=== PATIENT | female | born 1995 | race Caucasian/White ===

== ENCOUNTER 2019-06-02 02:19 | Inpatient (IN) | payer OTHER ==
[~2019-06-02] VITALS: Ht 160 cm; Wt 64.9 kg
[~2019-06-02 02:19] MED LIST: ACET500C5 PO
[2019-06-02 02:37] VITALS: BP 143/97; PULSE 62; RESP 18
[2019-06-02] MEDS ORDERED: PREN-19 PO (02:41)
[2019-06-02] MEDS ORDERED: FOLI0.4T2 PO (02:41)
[2019-06-02] MEDS ORDERED: FERR134T PO (02:41)
[2019-06-02] MEDS ORDERED: CHOL400T10 PO (02:41)
[2019-06-02] MEDS ORDERED: LACTATED RINGER'S 1,000 ML IV PRN (05:58)
[2019-06-02] MEDS ORDERED: OXYTOCIN 30 UNITS/LR 500 ML IV SCH ×4 (06:00→22:51)
[2019-06-02] MEDS ORDERED: OXYTOCIN 30 UNITS/LR 500 ML IV PRN ×3 (06:00→23:30)
[2019-06-02] MEDS ORDERED: BUTORPHANOL 2 MG INJ IV PRN ×2 (06:00)
[2019-06-02] MEDS ORDERED: CARBOPROST 250 MCG INJ IM PRN ×3 (06:00→23:30)
[2019-06-02] MEDS ORDERED: MISOPROSTOL 200 MCG TAB PR PRN ×3 (06:00→23:30)
[2019-06-02] MEDS ORDERED: MINERAL OIL LIGHT 10 ML VIAL TOP ONE (06:00)
[2019-06-02] MEDS ORDERED: METHYLERGONOVINE 0.2 MG INJ IM PRN ×3 (06:00→23:30)
[2019-06-02] MEDS ORDERED: LIDOCAINE 1% (MPF) 30 ML INJ INJ PRN (06:00)
[2019-06-02] MEDS ORDERED: AMPICILLIN 2 GM/NS (PMX) 100 ML IV ONE (06:00)
[2019-06-02] MEDS ORDERED: IBUPROFEN 600 MG TAB PO PRN (06:00)
--- NOTE | 2019-06-02 06:27 | TRIAGE ---
OB Triage Datetime Report Generated by CPN: 06/02/2019 06:27 Datetime: 06/02/2019 06:07 Comments: pt off monitor to be transferred to [facility] to be admitted to Labor and Delivery. Datetime: 06/02/2019 05:55 Stage of : OB Triage Datetime: 06/02/2019 05:48 Stage of : OB Triage Labor Evaluation Monitor Mode: External Quality: Moderate Pattern: Normal: <= 5 Contractions in 10 Minutes Resting Tone Ravena: Relaxed Heart Rate FHR Baseline Rate: 130 Monitor Mode: External US FHR Baseline Changes: No Baseline Change Variability: Moderate 6-25 bpm Accelerations: 15X15 Decelerations: None Category: Category I Vaginal Exam Dilatation (cms): 3.5 Effacement (%): 90 Station: -1 Exam By: Norm Vargas Membrane Status: Intact Amniotic Fluid Amount: None Vaginal Bleeding: Normal Show Cervix, Consistency: Soft Cervix, Position: Midposition Presentation 'A': Cephalic Datetime: 06/02/2019 03:00 Stage of : OB Triage Datetime: 06/02/2019 02:57 Stage of : OB Triage Labor Evaluation Monitor Mode: External Quality: Mild Pattern: Normal: <= 5 Contractions in 10 Minutes Resting Tone Ravena: Relaxed Heart Rate FHR Baseline Rate: 120 Monitor Mode: External US FHR Baseline Changes: No Baseline Change Variability: Moderate 6-25 bpm Accelerations: 10X10 Decelerations: None Category: Category I Vaginal Exam Dilatation (cms): 3.0 Effacement (%): 80 Station: -2 Exam By: E Sam Membrane Status: Intact Amniotic Fluid Amount: None Amniotic Fluid Odor: None Vaginal Bleeding: None Cervix, Consistency: Soft Cervix, Position: Midposition Presentation 'A': Cephalic Datetime: 06/02/2019 02:33 Stage of : OB Triage Maternal Assessment Level of Consciousness: Keenly Alert, Responsive DTR's/Clonus: DTRs 2+; No Clonus Headache: Denies Blurred Vision: No Respiratory Effort: Unlabored Nausea/Vomiting: Denies RUQ Epigastric Pain: Denies Facial Edema: None Labor Evaluation Monitor Mode: External Resting Tone Ravena: Relaxed Monitor Mode: External US Comments: FHR 125 Pain Assessment Pain Scale: 9 Pain Presence: Intermittent Pain Type: Contraction Pain Location: Abdomen; Back Datetime: 06/02/2019 02:30 Arrived By: Wheelchair Arrived From: Home Chief Complaint: c/o ucs Movement: Present Contractions: Regular Time Contractions Began: 06/01/2019 17:00 Contractions: q10-20 Rupture of Membranes: Denies Vaginal Bleeding: None Vaginal Discharge: Denies Recent Sexual Intercouse: Denies Abdominal Trauma: Not Applicable Patient Complaints: Cramping; Back Pain Time Provider Notified: 06/02/2019 03:00 Provider Notified: Dr Grimm Initial Plan: JORGE,KENDRA,PIIsidra [facility]
[2019-06-02] MEDS: LACTATED RINGER'S 1,000 ML IV SCH ×3 (07:47→19:03)
[2019-06-02] MEDS ORDERED: AMPICILLIN 1 GM/NS (PMX) 50 ML IV SCH (10:00)
--- NOTE | 2019-06-02 16:11 | PREAC ---
Date/Time of Note Date/Time of Note DATE: 06/02/19 TIME: 16:10 Anesthesia Eval and Record Evaluation Time Pre-Procedure Interview DATE: 06/02/19 TIME: 16:10 Age 23 Sex female NPO: 8 hrs Preoperative diagnosis IUP, Planned procedure labor epidural Past Medical History Past Medical History: Includes : : (2), Para: (0), Gestational age: (38.2) Surgery & Anesthesia Issues No known issue Meds Anticoagulation: No Beta Clement within 24 hr: No Reason Beta Clement not given: Pt. not on B-Clement Reported Medications Cholecalciferol* (Vitamin D*) 400 Unit Tablet, 400 UNIT PO DAILY, TAB 06/02/19 Folic Acid* (Folic Acid*) 0.4 Mg Tablet, 0.4 MG PO DAILY, TAB 06/02/19 Vit #76/Iron,Carb/FA (Prenatabs Rx Tablet) 1 Each Tablet, 1 EACH PO DAILY, TAB 06/02/19 Ferrous Sulfate (Iron) 134 Mg Tablet, 134 MG PO DAILY, TAB 06/02/19 Discontinued Scripts Acetaminophen* (Tylophen*) 500 Mg Capsule, 1 CAP PO Q6H PRN for PAIN AND OR ELEVATED TEMP, #20 CAP Prov:JOS RODRIGUEZ PA-C 01/29/16 Current Medications Lactated Ringer's 1,000 ml @ 125 mls/hr Q8H IV Last administered on 06/02/19at 13:50; Admin Dose 125 MLS/HR; Start 06/02/19 at 05:58 Butorphanol Tartrate (Stadol) 1 mg Q2H PRN IV .PAIN SCALE 1-5; Start 06/02/19 at 06:00 Butorphanol Tartrate (Stadol) 2 mg Q2H PRN IV .PAIN SCALE 6-10; Start 06/02/19 at 06:00 Lidocaine (Xylocaine 1% (Mpf)) 30 ml ONCE PRN INJ .EPISIOTOMY; Start 06/02/19 at 06:00 Oxytocin/Lactated Ringer's 500 ml @ 500 mls/hr ONCE POST IV ; Start 06/02/19 at 06:00 Oxytocin/Lactated Ringer's 500 ml @ 125 mls/hr POST IV ; Start 06/02/19 at 06:00 Ibuprofen (Motrin) 600 mg ONCE PRN PO .PAIN 1-5; Start 06/02/19 at 06:00 Lactated Ringer's 1,000 ml @ 2,000 mls/hr Q30M PRN IV .ANESTHESIA; Start 06/02/19 at 05:58 Oxytocin/Lactated Ringer's 500 ml @ 0 mls/hr ONCE PRN IV .VAGINAL BLEEDING; Start 06/02/19 at 06:00 Methylergonovine Maleate (Methergine) 0.2 mg ONCE PRN IM .VAGINAL BLEEDING; Start 06/02/19 at 06:00 Carboprost Tromethamine (Hemabate) 250 mcg ONCE PRN IM .VAGINAL BLEEDING; Start 06/02/19 at 06:00 Misoprostol (Cytotec) 1,000 mcg ONCE PRN MA .VAGINAL BLEEDING; Start 06/02/19 at 06:00 Oxytocin/Lactated Ringer's 500 ml @ 0 mls/hr FOR AUGMENTATION IV Last administered on 06/02/19at 08:22; Admin Dose 1 MLS/HR; Start 06/02/19 at 06:00 Meds reviewed: Yes Allergies Coded Allergies: No Known Allergy (Unverified , 06/02/19) Allergies Reviewed: Yes Labs/Studies Labs Reviewed: Reviewed by anesthesiologist Result Diagram: 06/02/19 0715 06/02/19 0425 Laboratory Tests 06/02/19 04:25 06/02/19 07:15 Blood Bank Test 06/02/19 08:08 Antibody Screen NEGATIVE Blood Type O POSITIVE Rh Immune Globulin Candidate NO test: N/A Pre-procedure Exam Last vitals Vital Signs Date Temp Pulse Resp B/P (MAP) Pulse Ox O2 O2 Flow FiO2 Time Delivery Rate 06/02/19 98.4 62 18 143/97 Room Air 02:37 (112) Airway: Adequate mouth opening, Adequate thyromental dist Mallampati: Mallampati II Teeth: Normal Lung: Normal Heart: Normal ASA Physical Status ASA physical status: 2 Emergency: None Planned Anesthetic Neuraxial: Epidural Planned Pain Management Epidural Pre-operative Attestations Prior to commencing anesthesia and surgery, the patient was re-evaluated, there was verification of: *The patient's identity *The results of appropriate recent lab work and preoperative vital signs *The above evaluation not changing prior to induction *Anesthetic plan, risk benefits, alternative and complications discussed with patient/family; questions answered; patient/family understands, accepts and wishes to proceed. ARLEY VICK MD Jun 02, 2019 16:11
[2019-06-02] MEDS ORDERED: FENTAnyl 50 MCG/ML VIAL IV PRN ×3 (16:30)
[2019-06-02] MEDS ORDERED: ONDANSETRON 4 MG INJ IV PRN ×2 (16:30)
[2019-06-02] MEDS ORDERED: KETOROLAC 30 MG INJ IV PRN (16:30)
[2019-06-02] MEDS ORDERED: NALOXONE (0.4 MG/ML) INJ IV PRN (16:30)
[2019-06-02] MEDS ORDERED: FENTAnyl 2MCG/ML-ROPIV 0.2% 100 ML BAG EPI SCH (16:30)
[2019-06-02] MEDS ORDERED: HYDROmorphONE 1 MG/5 ML IV SYRINGE IV PRN ×3 (16:30)
[2019-06-02] MEDS ORDERED: PROCHLORPERAZINE 10 MG INJ IV PRN (16:30)
[2019-06-02] MEDS ORDERED: MEPERIDINE 25 MG INJ IV PRN (16:30)
[2019-06-02] MEDS ORDERED: DIPHENHYDRAMINE 50 MG INJ IV PRN ×2 (16:30)
--- NOTE | 2019-06-02 17:36 | PAC ---
Date/Time of Note Date/Time of Note DATE: 06/02/19 TIME: 17:35 Post-Anesthesia Notes Post-Anesthesia Note Last documented vital signs Vital Signs Date Temp Pulse Resp B/P (MAP) Pulse Ox O2 O2 Flow FiO2 Time Delivery Rate 06/02/19 98.4 62 18 143/97 Room Air 02:37 (112) Activity: WNL Respiratory function: WNL Cardiovascular function: WNL Mental status: Baseline Pain reasonably controlled: Yes Hydration appropriate: Yes Nausea/Vomiting absent: Yes Comments BP: 138/82 HR: 78 RR: 15 T: 98.4 SaO2: 100% ARLEY VICK MD Jun 02, 2019 17:36
[2019-06-02] MEDS ORDERED: ACETAMINOPHEN 325 MG TAB PO PRN (22:30)
[2019-06-02] MEDS ORDERED: MAGNESIUM SULFATE 4 GM/100 ML 100 ML IVPB ONE (22:30)
[2019-06-02] MEDS ORDERED: MAGNESIUM SULFATE 20 GM/500 ML 500 ML IV SCH ×2 (22:30→23:46)
[2019-06-02] MEDS ORDERED: LACTATED RINGER'S 1,000 ML IV SCH (22:51)
[2019-06-02] MEDS ORDERED: HYDROCODONE/APAP (5/325) TAB PO PRN ×2 (23:00)
[2019-06-02] MEDS ORDERED: METHYLERGONOVINE 0.2 MG TAB PO PRN (23:00)
[2019-06-02] MEDS ORDERED: LANOLIN HPA 1 PKT TOP PRN (23:00)
[2019-06-02] MEDS ORDERED: NA PHOSPHATE/BIPHOS 133 ML ENEMA PR PRN (23:00)
[2019-06-02] MEDS: CEFAZOLIN 2 GM/50 ML (PMX) 50 ML IVPB SCH (23:00)
[2019-06-02] MEDS ORDERED: CEFAZOLIN 2 GM/50 ML (PMX) 50 ML IVPB SCH (23:30)
[2019-06-02] MEDS ORDERED: AL HYDROX/MG HYDROX/SIMETH 30 ML CUP PO ONE (23:30)
[2019-06-02] MEDS ORDERED: METOCLOPRAMIDE 10 MG INJ IV ONE (23:30)
[2019-06-02] MEDS ORDERED: FAMOTIDINE 20 MG INJ IV ONE (23:30)
[2019-06-02] MEDS ORDERED: CITRIC ACID/NA CITRATE 30 ML CUP PO ONE (23:30)
[2019-06-03] VITALS (20 sets, daily range): BP systolic 110–183; BP diastolic 63–100; PULSE 52–75; RESP 17–18
[2019-06-03] MEDS ORDERED: morphine SULFATE/PF (10 MG/10 ML) INJ ONE
[2019-06-03] MEDS ORDERED: CA GLUCONATE (GM) 10% 10ML INJ IV PRN
--- NOTE | 2019-06-03 00:01 | SIPON ---
Date/Time of Note Date/Time of Note DATE: 06/02/19 TIME: 23:58 Operative Report Preoperative Diagnosis Term in labor No progress of labor -induced hypertension Severe headaches and epigastric pain Postoperative Diagnosis Same Baby girl 9 with asynclitic head Operation/Procedure Performed Primary low segment transverse section Surgeon see signature line showroom sales assistant Dr. Mullen Anesthesia: epidural Estimated blood loss: other Transfusion Required none Specimen Placenta Grafts/Implants none Complications none YVONNE SAUCEDO MD Jun 03, 2019 00:01
[2019-06-03] MEDS ORDERED: LIDOCAINE 1.5%/EPI MPF (SDV) 30 ML VIAL ONE (00:10)
[2019-06-03] MEDS ORDERED: NA BICARBONATE 8.4% 50 ML SYG ONE (00:10)
[2019-06-03] MEDS ORDERED: PROCHLORPERAZINE 10 MG INJ IV PRN (00:30)
[2019-06-03] MEDS ORDERED: HYDROmorphONE 1 MG/5 ML IV SYRINGE IV PRN ×3 (00:30)
[2019-06-03] MEDS ORDERED: KETOROLAC 30 MG INJ IV PRN ×2 (00:30→01:00)
[2019-06-03] MEDS ORDERED: MEPERIDINE 25 MG INJ IV PRN (00:30)
[2019-06-03] MEDS ORDERED: FENTAnyl 50 MCG/ML VIAL IV PRN ×3 (00:30)
[2019-06-03] MEDS ORDERED: ONDANSETRON 4 MG INJ IV PRN ×2 (00:30→01:00)
[2019-06-03] MEDS ORDERED: DIPHENHYDRAMINE 50 MG INJ IV PRN ×2 (00:30→01:00)
[2019-06-03] MEDS ORDERED: MIDAZOLAM 1 MG/ML 2 ML INJ ONE (00:42)
[2019-06-03] MEDS ORDERED: OXYTOCIN 30 UNITS/LR 500 ML IV ONE (00:47)
[2019-06-03] MEDS ORDERED: PHENYLephrine (100 MCG/ML) 10ML SYG ONE (00:52)
[2019-06-03] MEDS ORDERED: ZOLPIDEM 5 MG TAB PO PRN (01:00)
[2019-06-03] MEDS ORDERED: HYDROmorphONE 0.5 MG/0.5 ML SYG IV PRN ×2 (01:00)
[2019-06-03] MEDS ORDERED: NALBUPHINE HCL (10 MG/1 ML) INJ IV PRN (01:00)
[2019-06-03] MEDS ORDERED: NALOXONE (0.4 MG/ML) INJ IV PRN (01:00)
--- NOTE | 2019-06-03 01:19 | PAC ---
Date/Time of Note Date/Time of Note DATE: 06/03/19 TIME: 01:17 Post-Anesthesia Notes Post-Anesthesia Note Last documented vital signs Vital Signs Date Temp Pulse Resp B/P (MAP) Pulse Ox O2 O2 Flow FiO2 Time Delivery Rate 06/02/19 98.4 62 18 143/97 Room Air 02:37 (112) Activity: WNL Respiratory function: WNL Cardiovascular function: WNL Mental status: Baseline Pain reasonably controlled: Yes Hydration appropriate: Yes Nausea/Vomiting absent: Yes Comments BP: 118/70 HR: 89 RR: 15 T: 98 SaO2: 99% ARLEY VICK MD Jun 03, 2019 01:19
--- NOTE | 2019-06-03 01:35 | OPR ---
DATE OF OPERATION: PROCEDURE: Primary low segment transverse section. PREOPERATIVE DIAGNOSES: 1. Term . 2. No progress of labor. 3. Preeclampsia. 4. Severe headaches. 5. Epigastric pain. POSTOPERATIVE DIAGNOSES 1. Term . 2. No progress of labor. 3. Preeclampsia. 4. Severe headaches. 5. Epigastric pain. 6. Baby girl, 9 with asynclitic head. SURGEON: Yvonne Jones MD APIGEE DEVELOPER: Joseph Mullen MD ANESTHESIOLOGIST: ____ ANESTHESIA: Epidural. COMPLICATIONS: None. BLOOD LOSS: About 400 mL. PROCEDURE: The patient was given a booster of her epidural anesthesia, placed in the supine position . A Alamo catheter was placed in the bladder. The abdomen was prepped and draped. A transverse inc ision was made 2 cm up the pubic bone of about 10 cm in length. The abdomen was opened in layers wit hout difficulties. The abdominal cavity was reached. The lower uterine segment was identified and t he bladder flap was made. The uterus was opened in the midline with a scalpel and the incision was i ncreased laterally on either side for about 3 inches. The baby's head was visualized being asyncliti c and I placed the head on the flexed neck position, and I delivered the baby being a baby girl, Apga r 9. The cord was clamped and cut. The baby was handed over. The cord blood was obtained and the p lacenta was removed. The uterus was closed in 2 layers with #0 PDS looped suture, imbedding the firs t line of suture and hemostasis was good. The tubes and ovaries were inspected to be normal. The ut erus was contracted well. The peritoneum was closed with a 2-0 Vicryl suture. The fascia was closed with a 0 PDS looped suture, 2-0 Vicryl for the subcutaneous tissue, 3-0 Monocryl subcuticular to the skin. The patient tolerated the procedure well and left the OR awake and stable. Sponge counts and instrument counts were correct. Intravenous antibiotics were given for prophylaxis. BLOOD LOSS: About 600 mL and the urine was clear at the end of the procedure. Dictated By: YVONNE WALKER/RENETTA Conf#: [id number] DID#: [id number]
--- NOTE | 2019-06-03 01:39 | PREOPHP ---
DATE OF ADMISSION: 06/02/2019 HISTORY OF PRESENT ILLNESS: This is a 23-year-old female, 4, para 0, abortions 3 with a last period of 08/2018, and EDC of 06/14/2019. This patient came early this morning with contractions an d she was admitted for delivery at 38-1/2 weeks with mild preeclampsia with mild hypertensi on and with cervical dilatation of 1 cm, 80% effaced and adi every 5 minutes. The patient palafox d been augmented during the day and she received an epidural due to pain, and she has been with no pr ogress of labor for several hours and at this time, the patient is complaining of a continuous headac he that is in the forehead and in the top of the head, continuous headache that she rates at 9 when I spoke to her. The patient's [facility] labs were showing elevation of alkaline phosphatase, slightly low p latelets and normal uric acid and dipstick was negative for protein. The patient had normal reflexes at the admission time. At this time, she has been having high blood pressure with the highest to 16 0/85 and with excruciating epigastric pain that has been permanent. The patient attributes that to n ot eating enough food and she had tried popsicles that did not change the epigastric pain. There is no history of gastritis. The patient also started having some vaginal bleeding. She has been ruptur ed for unknown hours. Since admission she was not ruptured, but at this time at 10:00 p.m., the rajesh ent was reevaluated and found to be ruptured. The patient's reflexes were evaluated, but the epidura l was completely abolishing the reflexes. The upper arm reflexes were normal. The patient denies be ing dizzy or with blurry vision. The patient had a reevaluation of blood test that revealed that the platelets were 163, dropping from 180, that was before during the day. The headaches are still perm anently being rated as a 9 and with no progress of labor with some vaginal bleeding that has started since I checked her at 10:00 p.m. with a little bit of blood clots and with the development of pregna ncy-induced hypertension, no progress of labor, the patient is advised for a section. PAST MEDICAL HISTORY: She does not drink or smoke. ALLERGIES: SHE DOES NOT HAVE ALLERGIES. SOCIAL HISTORY: No history of drugs. FAMILY HISTORY: Diabetes and she had no surgical antecedents or medical antecedents. PHYSICAL EXAMINATION: VITAL SIGNS: The blood pressure right now is 130/80, pulse is 80, respirations 16. HEAD AND NECK: The head is normal with normal thyroid. CHEST: Clear. HEART: Normal sinus rhythm. LUNGS: Clear. BREASTS: Soft, nontender, no masses. ABDOMEN: Soft. Uterus at term with contractions every minute. heart tones were normal. PELVIC: She is 4 cm, 100% effaced, anterior cervix about 0 station and rupture of membranes with austen e vaginal bleeding. The genitalia otherwise with no contribution. EXTREMITIES: Normal with no edema and reflexes difficult to evaluate due to the epidural. DIAGNOSES: A 38 and 1/2 weeks , no progress of labor, preeclampsia and low platelets. PLAN: The patient is advised for a primary section. She has been advised of the possible r isks and possible complications of the procedure with her alternatives and options. Written informat ion was provided. She had no more questions and agreed to go ahead with the procedure with full unde rstanding and no more questions. Dictated By: YVONNE WALKER/RENETTA Conf#: [id number] DID#: [id number]
[2019-06-03] MEDS: MAGNESIUM SULFATE 20 GM/500 ML 500 ML IV SCH ×2 (02:20→21:57)
[2019-06-03] MEDS: OXYTOCIN 30 UNITS/LR 500 ML IV SCH ×2 (03:40→21:01)
[2019-06-03] MEDS ORDERED: IBUPROFEN 800 MG TAB PO SCH (06:00)
[2019-06-03] MEDS: CEFAZOLIN 2 GM/50 ML (PMX) 50 ML IVPB SCH ×2 (06:33→16:50)
[2019-06-03] MEDS: KETOROLAC 30 MG INJ IV SCH ×4 (09:52→20:33)
[2019-06-03] MEDS: LABETALOL 100 MG TAB PO PRN (12:05)
[2019-06-03] MEDS: SENNA/DOCUSATE NA (8.6MG/50MG) TAB PO SCH ×2 (20:31→21:03)
[2019-06-03] MEDS ORDERED: CEFAZOLIN 2 GM/50 ML (PMX) 50 ML IVPB SCH (23:30)
[2019-06-04] VITALS (8 sets, daily range): BP systolic 122–133; BP diastolic 61–84; PULSE 61–78; RESP 17–18
[2019-06-04] MEDS: KETOROLAC 30 MG INJ IV SCH ×2 (00:32→06:26)
[2019-06-04] MEDS: SENNA/DOCUSATE NA (8.6MG/50MG) TAB PO SCH ×2 (09:23→21:00)
--- NOTE | 2019-06-04 10:48 | PN ---
Date/Time of Note Date/Time of Note DATE: 06/04/19 TIME: 10:47 Assessment/Plan Lines/Catheters IV Catheter Type (from Nrs): Peripheral IV Subjective 24 Hr Interval Summary Day 2 post Afebrile. Feeling good Not passing gases yet Incision dry Lab work acceptable Encourage ambulation Constitutional: no complaints Feeding: baseline diet Detailed Summary Eyes: no complaints ENT: no complaints Respiratory: no complaints Cardiovascular: no complaints Gastrointestinal: no complaints Genitourinary: no complaints Musculoskeletal: no complaints Skin: no complaints Neurologic: no complaints Endocrine: no complaints Lymphatic: no complaints Psychological: no complaints, nl mood/affect Immunologic: no complaints Exam/Review of Systems Vital Signs Vitals Vital Signs Date Temp Pulse Resp B/P (MAP) Pulse Ox O2 O2 Flow FiO2 Time Delivery Rate 06/04/19 98.0 63 18 125/79 Room Air 04:51 (94) 06/03/19 95 21:00 Intake and Output 06/03/19 06/03/19 06/04/19 1515:00 23:00 07:00 IntakeIntake Total 2520 ml 1620 ml 275 ml OutputOutput Total 1150 ml 675 ml 2100 ml BalanceBalance 1370 ml 945 ml -1825 ml Exam Constitutional: alert, oriented, well developed Psych: no complaints, nl mood/affect Head: normocephalic, atraumatic Eyes: nl conjunctiva, EOMI, nl lids, nl sclera ENMT: nl external ears & nose, nl lips & teeth, nl nasal mucosa & septum, mucosa pink and moist Neck: supple, non-tender Respiratory: clear to auscultation, normal air movement Cardiovascular: regular rate and rhythm, nl pulses Gastrointestinal: soft, nl liver, spleen, non-tender Musculoskeletal: nl extremities to inspection, nl gait and stance Extremities: normal pulses Neurological: SET AND EXHIBIT DESIGNER II-XII intact, nl mental status, nl speech, nl strength Skin: nl turgor, rash or lesions Lymph: nl lymph nodes Results Result Diagram: 06/04/19 0024 06/02/19 2239 YVONNE SAUCEDO MD Jun 04, 2019 10:48
[2019-06-04] MEDS: IBUPROFEN 800 MG TAB PO SCH ×2 (15:12→21:28)
[2019-06-04] MEDS: LABETALOL 100 MG TAB PO PRN (21:50)
[2019-06-05 04:00] VITALS: BP 130/78; PULSE 70; RESP 16
[2019-06-05] MEDS: IBUPROFEN 800 MG TAB PO SCH (05:39)
[2019-06-05 08:15] VITALS: BP 137/83; PULSE 62; RESP 18
[2019-06-05] MEDS: SENNA/DOCUSATE NA (8.6MG/50MG) TAB PO SCH (09:00)
[2019-06-05] MEDS ORDERED: MEASLES,MUMPS,RUBELLA VACCINE INJ SC* ONE (09:00)
[2019-06-05] MEDS ORDERED: DIPHTH/TET/ACEL PERTUSS (ADULT) 0.5 ML VIAL IM* ONE (09:00)
[2019-06-05] MEDS: LABETALOL 100 MG TAB PO PRN (10:34)
[2019-06-05 10:35] VITALS: BP 138/92; RESP 20
--- NOTE | 2019-06-05 13:21 | PD.PPDC ---
COMBINATION WELDER Discharge Instruction Condition [id number] Patient Condition: Yrkab0d Good Diet Zxivy0Bl Diet: Besww2f Resume Regular Diet Activity/Restrictions Pxtae5Cm Activity: Jqlxt6b Normal Activity May Shower Qxyfx5Kw Restrictions: Ydisi4u No Exercising No Lifting No Driving No Sexual Activity Nothing in the Vagina No [place] No Tampons, douche Wound/Drain Care Instructions [id number] Wound/Drain Care Qucxr1d Remove Steri Strips in 1 week Instructions: Wash with soap and water Keep clean and dry Follow-up Follow-up with Physician: 2, Week/Weeks Return to clinic for Hmsud2Ms HAND TOUCH UP PAINTER Instructions: Xmjkt0d Fever greater than 101 Chills Worsening abdominal pain Excessive Vaginal Bleeding More than 2 pads per hour Unable to tolerate diet [id number] OB Instructions: Pyjki4l Breast Tenderness Depression Blurried Vision Headache [id number] Surgical Instructions: Rldmh0o Incisional Drainage Incisional Redness YVONNE SAUCEDO MD Jun 05, 2019 13:21
--- NOTE | 2019-06-05 13:46 | DS ---
Date/Time of Note Date/Time of Note DATE: 06/05/19 TIME: 13:24 Obstetrical Discharge Record Final Diagnosis Final Diagnosis: Term delivered Vaginal Delivery Other Delivery information This patient came in labor at 38-1/2 weeks She had no progress of labor even with augmentation The dilatation did not go beyond 4 cm The patient was developing preeclampsia with severe headaches and upper epigastric pain that was unbearable. And the primary section was offered for the development of preeclampsia and no she did very good after surgery she was kept on magnesium sulfate for 24 hours progress of labor. And her headache had been gone with the upper abdominal pain immediately after delivery. An abdominal ultrasound was obtained which was negative with showing mild hydron ephrosis that would be rechecked afterwards. Her laboratory testing showed anemia that will be also monitored as an outpatient. She developed low platelets as part of her preeclampsia but it was stable and she had no coagulation problems she is stable to go home. She had been tolerating diet passing gases with a clean incision and ambulating she is wishing to go home since she feels that her pain medication control her pain and she can move the same thing at home instructions were given of what to do and not to do at home and how to reach me in case of an emergency and she should see me in a week Section Section: Primary Complications Preg induced Hypertension Augmentation: Yes Tocolytics: Magnesium Sulfate Rupture of Membranes: No Condition on Discharge Physical Assessment Voiding: Yes Bowel Movement: Yes Breast: Soft, non-tender, Filling Fundus: Firm Calf Tenderness: No Patient Condition: Good YVONNE SAUCEDO MD Jun 05, 2019 13:46
--- NOTE | 2019-06-06 15:46 | DELSUM ---
Delivery Summary A-C Datetime Report Generated by CPN: 06/06/2019 15:46 DELIVERY PERSONNEL Gripper Installer: Maria T Gomeze MATERNAL INFORMATION Delivery Anesthesia: Epidural; Spinal Medications in Delivery: see anesthesiologist notes Delivery QBL (ml): 600 Placenta Cultured: No Maternal Complications: Other Other Maternal Complications: PIH LABOR SUMMARY EDC: 06/14/2019 00:00 No. Babies in Womb: 1 Attempted: No Labor Anesthesia: Epidural LABOR INFORMATION Reason for Induction: Not Applicable Onset of Labor: 06/01/2019 17:00 Group B Beta Strep: Negative Antibiotics # of Doses: 1 Antibiotics Time of Last Dose: 06/03/2019 00:03 Steroids Given: None Reason Steroids Not Administered: Not Applicable MEMBRANES Membranes Rupture Method: Spontaneous Rupture of Membranes: 06/02/2019 21:49 Length of Rupture (hr): 2.72 Amniotic Fluid Color: Clear Amniotic Fluid Amount: Moderate Amniotic Fluid Odor: None STAGES OF LABOR Stage 3 hr: 0 Stage 3 min: 3 Total Time in Labor hr: 31 Total Time in Labor min: 35 CSECTION DELIVERY Primary Indication: Failure of Descent Secondary Indication: Other Other Secondary Indication: PIH CSection Urgency: Elective CSection Incidence: Primary Labor: Labor Elective: Elective CSection Incision: Lower Uterine Transverse BABY A INFORMATION Delivery Date/Time: 06/03/2019 00:32 Method of Delivery: Born in Route : No : N/A Forceps: N/A Vacuum Extraction: N/A Shoulder Dystocia : N/A SHOULDER DYSTOCIA BABY A Infant Delivery Date/Time: 06/03/2019 00:32 PRESENTATION/POSITION BABY A Presentation: Cephalic Cephalic Presentation: Vertex Vertex Position: Left Occipital Anterior Breech Presentation: N/A PLACENTA INFORMATION BABY A Placenta Delivery Time : 06/03/2019 00:35 Placenta Method of Delivery: Manual Removal Placenta Status: Delivered SCORES BABY A Heart Rate 1 min: >100 bpm Resp Effort 1 min: Good Cry Reflex Irritability 1 min: Cough/Sneeze/Pulls Away Muscle Tone 1 min: Active Motion Color 1 min: Blue/Pale Resuscitation Effort 1 min: Tactile Stimulation SCORE 1 MIN: 8 Heart Rate 5 min: >100 bpm Resp Effort 5 min: Good Cry Reflex Irritability 5 min: Cough/Sneeze/Pulls Away Muscle Tone 5 min: Active Motion Color 5 min: Body [place], Extremit Blue Resuscitation Effort 5 min: Tactile Stimulation SCORE 5 MIN: 9 INFANT INFORMATION BABY A Gestational Age at Delivery: 38.2 Gestational Status: Early Term- 37- 38.6 Weeks Infant Outcome : Liveborn, with signs of life Infant Condition : Stable Infant Sex: Female IDENTIFICATION/MEDS BABY A ID Band Number: [id number] ID Band Location: Right Leg; Left Arm Sensor Applied: Yes Sensor Number: [id number] Sensor Location : Cord Clamp Vitamin K Given : Not Given Erythromycin Given: Not Given WEIGHT/LENGTH BABY A Birthweight (gm): 2690 Weight (lb): 5 Infant Weight (oz): 15 Infant Length (in): 19.50 Length (cm): 49.53 CORD INFORMATION BABY A No. Cord Vessels: 3 Nuchal Cord : N/A Cord Blood Taken: N/A Banking/Donate Info: NO Suction: Mouth; Nose ASSESSMENT BABY A Complications: Multiple Variable Decels Physical Findings at Delivery: Within Normal Limits Infant Respirations: Appears Normal Casting Wheel Operator/ALS Called : No Infant Care By: Gisele Amaro/Norm Burnett Transferred To: Remains with Mother
== END 2019-06-05 15:45 | disposition home or self-care (01) | DRG 788 ==
LOC: OBT 02:19 → L-D 02:19 → OBT 05:55 → L-D 06-03 00:20 → PP1 06-03 03:54
PROVIDERS: ADMIT Obstetrics & Gynecology; ATTEND Obstetrics & Gynecology
PROC: 10D00Z1 Extraction of Products of Conception, Low, Open Approach (ICD-10-PCS; principal; 2019-06-03 00:30)
DX: O14.04 Mild to moderate pre-eclampsia, complicating childbirth (principal); O62.0 Primary inadequate contractions; Z3A.38 38 weeks gestation of pregnancy; Z37.0 Single live birth
CPT/HCPCS: 76705; 76815; 76818; 80053; 80076; 81001; 83735; 84560; 85025; 85384; 85610; 85730; 86592; 86850; 86900; 86901; 87340; 99464; G0463; J0690; J1170; J1885; J2250; J2274; J2370; J2405; J2590; J2765; J3010; J3475; J7120

== ENCOUNTER 2019-09-30 19:04 | Emergency (ER) | payer OTHER ==
[~2019-09-30] VITALS: Ht 160 cm; Wt 54.9 kg
[~2019-09-30 19:04] MED LIST changes: +CEPH-443 PO; +CHOL400T10 PO; +FOLI0.4T2 PO; +PHEN-538 PO; +PREN-19 PO
[2019-09-30 19:10] VITALS: BP 115/66; PULSE 118; RESP 20; Ht 160 cm; Wt 54.9 kg
[2019-09-30] MEDS ORDERED: ACETAMINOPHEN 325 MG TAB PO ONE (20:30)
[2019-09-30] MEDS ORDERED: CEPHALEXIN 500 MG CAP PO ONE (20:30)
[2019-09-30] MEDS ORDERED: PHENAZOPYRIDINE 100 MG TAB PO ONE (20:30)
== END 2019-09-30 21:22 | disposition home or self-care (01) ==
LOC: FTE 19:04
DX: N30.00 Acute cystitis without hematuria (principal); R10.9 Unspecified abdominal pain
CPT/HCPCS: 81001; 81025; 84703; Z7502; Z7610; 81003; 99283